=== PATIENT | female | born 1990 | race Caucasian/White ===

== ENCOUNTER 2017-07-26 02:10 | Inpatient (IN) | payer MEDICAID, SELFPAY ==
[2017-07-28 19:31] VITALS: BP 168/103; PULSE 85; RESP 18; TEMP 36.5; O2SAT 99; BMI 43.9
--- NOTE | 2017-07-29 10:37 | HMH.DCSUM ---
General - General Admission date: 07/26/17 Discharge date: 07/29/17 HPI HPI: She is a 26-year-old 3 para 3 who was 39 weeks gestational age. She has had a previous section as a result that was offered repeat lower segment transverse section at term. Objective Vital signs: Temp Pulse Resp BP Pulse Ox 97.7 F 85 18 168/103 99 07/28/17 19:31 07/28/17 19:31 07/28/17 19:31 07/28/17 19:31 07/28/17 19:31 no acute distress Hospital Course Hospital Course: On July 26, 2017 she underwent a repeat lower segment transverse section. She is eating and drinking and ambulating. She has done well . She has remained afebrile throughout her hospitalization. She is breast-feeding. Results Labs on day of discharge: Labs from last 24 hours 07/27/17 07/26/17 07/26/17 05:55 08:00 07:48 WBC RBC Hgb 9.3 L Hct 29.5 L MCV RDW Plt Count MPV Gran % Gran # Lymphocytes % Monocytes % Eosinophils % Basophils % Lymphocytes # Monocytes # Eosinophils # Basophils # PUBS MCHC Cord Blood pH 7.35 Sodium Potassium Chloride Carbon Dioxide BUN Creatinine Estimated GFR (MDRD) Glucose Calcium Total Bilirubin AST ALT Alkaline Phosphatase Total Protein Albumin Globulin Albumin/Globulin Ratio Urine Color YELLOW Urine Appearance CLEAR Urine pH 7.5 Ur Specific [place] 1.015 Urine Protein NEGATIVE Urine Ketones NEGATIVE Urine Blood NEGATIVE Urine Nitrate NEGATIVE Urine Bilirubin NEGATIVE Urine Urobilinogen 0.2 Ur Leukocyte Esterase NEGATIVE Urine WBC OCC Ur Squamous Epith Cells OCC Urine Bacteria TRACE Urine Mucus Urine Glucose NEGATIVE Opiates Screen Urine Methadone Screen Barbiturates Phencyclidine Screen Amphetamines Screen Benzodiazepines Screen Cocaine Screen Marijuana (THC) Screen Antibody Screen MCH Miscellaneous Test Blood Type (Ref Lab) 07/26/17 07/26/17 07/26/17 05:50 05:50 05:50 WBC 8.6 RBC 4.13 L Hgb 10.2 L Hct 32.4 L MCV 78.5 L RDW 15.1 Plt Count 288 MPV 7.6 Gran % 62.9 Gran # 5.4 Lymphocytes % 29.8 Monocytes % 4.7 Eosinophils % 2.1 Basophils % 0.4 Lymphocytes # 2.6 Monocytes # 0.4 Eosinophils # 0.2 Basophils # 0.0 PUBS MCHC 31.6 L Cord Blood pH Sodium 138 Potassium 3.7 Chloride 105 Carbon Dioxide 24 BUN 8 Creatinine 0.7 Estimated GFR (MDRD) 103 Glucose 84 Calcium 8.4 L Total Bilirubin 0.3 AST 8 L ALT 6 L Alkaline Phosphatase 179 H Total Protein 6.9 Albumin 2.5 L Globulin 4.4 H Albumin/Globulin Ratio 0.6 L Urine Color Urine Appearance Urine pH Ur Specific [place] Urine Protein Urine Ketones Urine Blood Urine Nitrate Urine Bilirubin Urine Urobilinogen Ur Leukocyte Esterase Urine WBC Ur Squamous Epith Cells Urine Bacteria Urine Mucus Urine Glucose Opiates Screen Urine Methadone Screen Barbiturates Phencyclidine Screen Amphetamines Screen Benzodiazepines Screen Cocaine Screen Marijuana (THC) Screen Antibody Screen NEGATIVE MCH 24.8 L Miscellaneous Test POSITIVE Blood Type (Ref Lab) A 07/26/17 07/26/17 05:30 05:30 WBC RBC Hgb Hct MCV RDW Plt Count MPV Gran % Gran # Lymphocytes % Monocytes % Eosinophils % Basophils % Lymphocytes # Monocytes # Eosinophils # Basophils # PUBS MCHC Cord Blood pH Sodium Potassium Chloride Carbon Dioxide BUN Creatinine Estimated GFR (MDRD) Glucose Calcium Total Bilirubin AST ALT Alkaline Phosphatase Total Protein Albumin Globulin Albumin/Globulin Ratio Urine Color DK YELLOW U
--- NOTE | 2017-07-29 10:40 | P.DS_ITS ---
General - General Admission date: 07/26/17 Discharge date: 07/29/17 HPI HPI: She is a 26-year-old 3 para 3 who was 39 weeks gestational age. She has had a previous section as a result that was offered repeat lower segment transverse section at term. Objective Vital signs: Temp Pulse Resp BP Pulse Ox 97.7 F 85 18 168/103 99 07/28/17 19:31 07/28/17 19:31 07/28/17 19:31 07/28/17 19:31 07/28/17 19:31 no acute distress Hospital Course Hospital Course: On July 26, 2017 she underwent a repeat lower segment transverse section. She is eating and drinking and ambulating. She has done well . She has remained afebrile throughout her hospitalization. She is breast-feeding. Results Labs on day of discharge: Labs from last 24 hours 07/27/17 07/26/17 07/26/17 05:55 08:00 07:48 WBC RBC Hgb 9.3 L Hct 29.5 L MCV RDW Plt Count MPV Gran % Gran # Lymphocytes % Monocytes % Eosinophils % Basophils % Lymphocytes # Monocytes # Eosinophils # Basophils # PUBS MCHC Cord Blood pH 7.35 Sodium Potassium Chloride Carbon Dioxide BUN Creatinine Estimated GFR (MDRD) Glucose Calcium Total Bilirubin AST ALT Alkaline Phosphatase Total Protein Albumin Globulin Albumin/Globulin Ratio Urine Color YELLOW Urine Appearance CLEAR Urine pH 7.5 Ur Specific [place] 1.015 Urine Protein NEGATIVE Urine Ketones NEGATIVE Urine Blood NEGATIVE Urine Nitrate NEGATIVE Urine Bilirubin NEGATIVE Urine Urobilinogen 0.2 Ur Leukocyte Esterase NEGATIVE Urine WBC OCC Ur Squamous Epith Cells OCC Urine Bacteria TRACE Urine Mucus Urine Glucose NEGATIVE Opiates Screen Urine Methadone Screen Barbiturates Phencyclidine Screen Amphetamines Screen Benzodiazepines Screen Cocaine Screen Marijuana (THC) Screen Antibody Screen MCH Miscellaneous Test Blood Type (Ref Lab) 07/26/17 07/26/17 07/26/17 05:50 05:50 05:50 WBC 8.6 RBC 4.13 L Hgb 10.2 L Hct 32.4 L MCV 78.5 L RDW 15.1 Plt Count 288 MPV 7.6 Gran % 62.9 Gran # 5.4 Lymphocytes % 29.8 Monocytes % 4.7 Eosinophils % 2.1 Basophils % 0.4 Lymphocytes # 2.6 Monocytes # 0.4 Eosinophils # 0.2 Basophils # 0.0 PUBS MCHC 31.6 L Cord Blood pH Sodium 138 Potassium 3.7 Chloride 105 Carbon Dioxide 24 BUN 8 Creatinine 0.7 Estimated GFR (MDRD) 103 Glucose 84 Calcium 8.4 L Total Bilirubin 0
== END 2017-07-29 13:30 | disposition home or self-care (01) | DRG 766 ==
PROVIDERS: Admitting Provider Nurse Practitioner Obstetrics & Gynecology; Visit Provider Nurse Practitioner Obstetrics & Gynecology
DX: O34.211 Maternal care for low transverse scar from previous cesarean delivery (principal); N85.8 Other specified noninflammatory disorders of uterus; Z3A.39 39 weeks gestation of pregnancy; Z37.0 Single live birth
CPT/HCPCS: 59514; 36415; 59025; 80053; 80305; 81001; 82800; 85014; 85018; 85025; 86850; 86900; 86901; 87086; 90686; 90732

== ENCOUNTER 2017-08-01 13:19 | Emergency (ER) | payer MEDICAID, SELFPAY ==
[2017-08-01 13:42] VITALS: BP 140/95; PULSE 82; RESP 18; TEMP 36.7; O2SAT 97; BMI 44.6
--- NOTE | 2017-08-01 14:12 | XR_ITS ---
XR chest 2V HISTORY: ITS.REASON: HEADACHE, POST- ORDERING PHYSICIAN: Jaylin Dexter MD PATIENT AGE: 26 years COMPARISON: None available FINDINGS: The cardiomediastinal silhouette and pulmonary vascularity are within normal limits. The lungs are clear without infiltrates, suspicious nodules, or pleural effusions. No acute bony abnormalities. IMPRESSION: Negative chest, no acute finding
[2017-08-01 14:41] LABS: Basophils % 0.4 % (0.1-2.0); Eosinophils # 0.4 K/mm3 (0.0-0.4); Eosinophils % 5.9 % (0.1-12.0); Hematocrit 32.7 % (37.0-47.0); Hemoglobin 10.2 g/dL (12.2-16.2); Lymphocytes # 1.9 K/mm3 (0.7-4.5); Lymphocytes % 27.5 K/mm3 (10-50); Mean Corpuscular HGB Conc 31.2 g/dL (31.8-35.4); Mean Corpuscular Hemoglobin 24.8 pg (27.0-31.2); Mean Corpuscular Volume 79.4 fl (81-99); Mean Platelet Volume 7.4 fl (7.4-10.4); Monocytes # 0.3 K/mm3 (0.1-1.0); Monocytes % 4.5 % (1.7-9.3); Neutrophils # 4.3 K/mm3 (1.8-7.8); Neutrophils % 61.7 % (37.0-80.0); Platelet Count 400 K/mm3 (142-424); Red Blood Count 4.12 M/mm3 (4.20-5.40); Red Cell Distribution Width 14.9 % (11.5-17.5)
[2017-08-01 14:55] LABS: Alanine Aminotransferase 18 U/L (12-78); Albumin Level 2.5 gm/dL (3.4-5.0); Albumin/Globulin Ratio 0.6 (1.1-1.8); Alkaline Phosphatase 119 U/L (46-116); Anion Gap 8.9 mEq/L (5-15); Aspartate Amino Transferase 15 U/L (15-37); Bilirubin,Total 0.3 mg/dL (0.2-1.0); Blood Urea Nitrogen 8 mg/dL (7-18); Calcium 8.7 mg/dL (8.5-10.1); Carbon Dioxide 30 mmol/L (21.0-32.0); Chloride 104 mmol/L (98-107); Creatinine Clearance Estimated 95 mg/ml (0-300); Creatinine,Serum 0.79 mg/dL (0.55-1.02); Estimated Glomerular Filt Rate > 60 ml/min (>60); GFR (African American) > 60 ML/MIN (>60); Globulin 4.5 gm/dl (1.3-3.2); Glucose 104 mg/dL (74-106); Potassium 3.9 mmoL/L (3.5-5.1); Sodium 139 mmol/L (136-145); Troponin I < 0.02 ng/ml (0.00-0.06)
--- NOTE | 2017-08-01 15:59 | PC.NURSE ---
CALL PLACED TO MECCA BOLAND CRNA.
--- NOTE | 2017-08-01 16:02 | HMH.EDGENADL ---
ED Disposition Clinical Impression: Cephalgia Disposition: Home, Self-Care Condition on Discharge: Good Instructions: Migraine Headaches (Alternative Therapy) Referrals: Karley Pugh [Primary Care Provider] - Time of Disposition: 18:04 - Critical Care Critical Care Time: No Attestation: On 08/01/17, the high probability of a clinically significant, sudden or life threatening deterioration of the following system(s) required my full and direct attention, intervention and personal management. The time I documented below is in addition to time spent performing reported procedures but includes the following listed in this critical care notation. Medical Decision Making Vital Signs: 08/01/17 13:42 Temperature 98.1 F Temperature Source Oral Pulse Rate [Right Brachial] 82 Respiratory Rate 18 Blood Pressure [Right Arm] 140/95 Blood Pressure Mean [Right Arm] 110 Blood Pressure Source [Right Arm] Automatic Cuff Blood Pressure Position [Right Arm] Supine 02 Sat by Pulse Oximetry 97 Oxygen Delivery Method Room Air - Lab Data Lab Results 08/01/17 14:30: WBC 7.0, RBC 4.12 L, Hgb 10.2 L, Hct 32.7 L, MCV 79.4 L, MCH 24.8 L, MCHC 31.2 L, RDW 14.9, Plt Count 400, MPV 7.4, Neut % (Auto) 61.7, Lymph % (Auto) 27.5, [place] % (Auto) 4.5, Eos % (Auto) 5.9, Baso % (Auto) 0.4, Neut # (Auto) 4.3, Lymph # (Auto) 1.9, [place] # (Auto) 0.3, Eos # (Auto) 0.4, Baso # (Auto) 0.0 08/01/17 14:30: Sodium 139, Potassium 3.9, Chloride 104, Carbon Dioxide 30, Anion Gap 8.9, BUN 8, Creatinine 0.79, Estimated Creat Clear 95, Estimated GFR > 60, Est GFR ( Amer) > 60, Glucose 104, Calcium 8.7, Total Bilirubin 0.3, AST 15, ALT 18, Alkaline Phosphatase 119 H, Troponin I < 0.02, Total Protein 7.0, Albumin 2.5 L, Globulin 4.5 H, Albumin/Globulin Ratio 0.6 L Result diagrams: 08/01/17 14:30 08/01/17 14:30 Orders (Tests/Meds): ED MEDICATIONS Generic Name Dose Route Start Last Admin Trade Name Freq PRN Reason Stop Dose Admin Sodium Chloride 10 ml 08/01/17 14:35 Saline Flush 10ml Syringe IV 08/31/17 14:34 NEEDED PRN Maintain IV Site Discontinued Medications Generic Name Dose Route Start Last Admin Trade Name Freq PRN Reason Stop Dose Admin Methylprednisolone Sodium Succinate 125 mg 08/01/17 16:26 Solu-Medrol 125mg/2ml Vial IV 08/01/17 16:27 ONCE ONE - Physician Consults Physician Consulted: Donny Benjamin anesthesia [facility] ascp consultant Time: 16:02 (states cephalgia not related to epidural placement;patch not indicated) Comment/Response: on his way in to assess pt; consideration for possible blood patch Time: 17:22 Reason -: Pt condition, Other (BP 142/96 although headache gone; will obtain OB consult) Time: 18:01 Reason -: Obstetrical Eval/Care Comment/Response: Dr. Child states to d/c with call by patient to Dr. Serrano tomorrow morning to recheck BP and reevaluate; pt stable at d/c no headache now - Akbar Inquiry Pt receiving controlled substance: No Medical Decision Making Narrative: Pt w/ hx of hormonally mediated migraines; pain relieved with Solumedrol IV; no meningismus; ready for d/c General Adult HPI - General Chief complaint: PAIN Stated complaint: head ache x3 days Time Seen by Provider: 08/01/17 16:00 Mode of Arrival: Ambulatory Limitations: No Limitations Description of Symptoms (Recalled from ER Triage Doc. by RN): HAS HAD A MIGRAINE VARYING IN INTENSITY FOR 3 DAYS: RECENTLY HAD C/S. ON SATURDAY - History of Present Illness HPI narrative: Pain diffusely, hx migraines; hx epidural six days ago with nl CS; had preeclampsia with prior and not with this one Severity: mild - Related Data Home Medications Medication Instructions Recorded Confirmed No Known Home Medications [No 07/28/17 08/01/17 Known Home Medications] Allergies Allergy/AdvReac Type Severity Reaction Status Date / Time No Known Allergies Allergy Verified 07/28/17 19:09 [facility]
[2017-08-01 18:31] VITALS: BP 142/85; PULSE 65; RESP 18
== END 2017-08-01 18:30 | disposition home or self-care (01) ==
PROVIDERS: Emergency Provider Emergency Medicine; PCP Family Medicine
DX: R51 Headache (principal); F17.210 Nicotine dependence, cigarettes, uncomplicated
CPT/HCPCS: 71046; 80053; 84484; 85025; 99282; 99283

== ENCOUNTER 2021-06-12 09:09 | Emergency (ER) | payer MEDICAID, SELFPAY ==
[2021-06-12 09:48] VITALS: BP 156/81; PULSE 76; RESP 16; TEMP 36.6; O2SAT 100; BMI 48.3
[2021-06-12 09:53] LABS: UTC Strep Screen (Rapid) Positive (Negative)
--- NOTE | 2021-06-12 10:28 | HMH.EDUTC ---
[facility] [place] Disposition Clinical Impression: Strep throat Disposition: Home, Self-Care Condition on Discharge: Good Instructions: DI for Strep Throat, Strep Throat Additional Instructions: *Monitor Temp, Over the counter Motrin or Tylenol as directed/as needed Tylenol every 4 hours and Motrin every 6 hours (as long as your family doctor has told you that you can take it) for fever or pain. and straight to ER if unable to lower temp less than 101.0 after medication given *Warm salt water gargles may help to soothe the throat *Throat Lozenges *Warm fluids like tea with honey may help to soothe the throat *Sleep elevated *Humidifier/Vaporizer *If you did not take Penicillin shot or was unable to, start taking antibiotic immediately and make sure that you take it for the FULL length of time although you should start to feel better in 24-48 hours *change toothbrush and toothpaste 24-48 hours after starting to take antibiotics so you do not reinfect yourself Monitor Temp. Tylenol and/or Ibuprofen as needed. ER if fever is no less than 101 despite alternating Tylenol and Ibuprofen * Encourage fluids, water, Gatorade, powerade, pedialyte if infant/toddler/or child *Cold fluids, popsicles and ice cream may feel good on his throat Follow up IMMEDIATELY for new or worsening symptoms or no Noticeable improvement over the next 48-72 hours. 911 for difficulty breathing or swallowing Prescriptions: Brompheniramine/Pseudoephed/Dm [Bromfed Dm Cough Syrup] 5 - 10 ml PO Q46H PRN #200 ml PRN Reason: Cough Transmission Status: Pending to [id number] Cefdinir [Omnicef 300mg Capsule] 300 mg PO BID #20 cap Transmission Status: Pending to [id number] Referrals: Karley Pugh [Primary Care Provider] - As needed Forms: Work/School Release Time of Disposition: 10:32 Medical Decision Making - Akbar Inquiry Pt receiving controlled substance: No Akbar was queried for this patient: No Vital Signs: 06/12/21 09:48 Temperature 97.8 F Temperature Source Oral Pulse Rate [Left] 76 Respiratory Rate 16 Blood Pressure [Right Arm] 156/81 H Blood Pressure Mean [Right Arm] 106 02 Sat by Pulse Oximetry 100 - Lab Data Lab results reviewed: Yes: I reviewed the patient's lab results. Lab Results 06/12/21 09:42: Strep Scn Rapid Clinic Positive A [facility] [place] HPI - General Stated complaint: cough, runny nose, congestion Time Seen by Provider: 06/12/21 10:28 Mode of Arrival: Ambulatory Source of Information: Patient Limitations: No Limitations Description of Symptoms (Recalled from Triage Doc. by RN): pt c/o cough, congestion, nasal drainage and ear aches x1 day. HEENT Symptoms (Recalled from RN notes): Yes (congestion, nasal drainage and ears ache) Resp Symptoms (Recalled from RN notes): Yes (cough) Skin Symptoms (Recalled from RN notes): No MS Symptoms (Recalled from RN notes): No Functional Status (Recalled from RN notes): na - History of Present Illness Provider Complaint: Patient states that she has been having sore throat, cough, and pain in both ears on and off States that her children have been feeling ill also so she came in to get checked - Related Data Previous Rx's Medication Instructions Recorded Azithromycin [Zithromax 500mg Tab 500 mg PO DAILY #3 tab 05/24/18 [facility]] Cefdinir [Omnicef 300mg Capsule] 300 mg PO BID #20 cap 08/31/18 Promethazine/Dextromethorphan 5 ml PO Q6HP PRN #240 syrup 08/31/18 [Promethazine-Dm Syrup] Oseltamivir Phosphate [Tamiflu 75 mg PO BID #10 capsule 10/19/18 75mg Capsule] Azithromycin [Zithromax 250mg 250 mg PO DIRECTED #6 tab 10/28/18 tab] Brompheniramine/Pseudoephed/Dm 5 - 10 ml PO Q46H PRN #200 ml 06/12/21 [Bromfed Dm Cough Syrup] Cefdinir [Omnicef 300mg Capsule] 300 mg PO BID #20 cap 06/12/21 Allergies Allergy/AdvReac Type Severity Reaction Status Date / Time No Known Allergies Allergy Verified 10/28/18 19:20 - Worker's Comp
[2021-06-12 10:54] VITALS: BP 156/81; PULSE 76; RESP 16; TEMP 36.6
== END 2021-06-12 11:00 | disposition home or self-care (01) ==
PROVIDERS: Emergency Provider Nurse Practitioner; PCP Family Medicine
DX: J02.0 Streptococcal pharyngitis (principal); F17.210 Nicotine dependence, cigarettes, uncomplicated
CPT/HCPCS: 87880; 99202; G0463

== ENCOUNTER 2023-08-11 10:51 | Emergency (ER) | payer MEDICAID, SELFPAY ==
[2023-08-11 11:15] VITALS: BP 140/83; PULSE 86; RESP 18; TEMP 36.7; O2SAT 100; BMI 45.1
--- NOTE | 2023-08-11 11:43 | EXP.UTC ---
Discharge Plan Disposition Patient Disposition: Home, Self-Care Condition: Good Prescriptions Prescriptions: New oseltamivir [Tamiflu] 75 mg capsule 75 mg PO BID Qty: 10 0RF [id number]-[id number] [Bromfed DM] 2-30-10 mg/5 mL Syrup 5 ml PO Q6H PRN (Reason: Cough) Qty: 240 0RF ondansetron 4 mg Tablet,Disintegrating 4 mg PO Q8H PRN (Reason: Nausea) Qty: 12 0RF Referrals Follow up/Referrals: Donavon Hayes APRN [Primary Care Provider] - See instructions Activity Restrictions/Add. Instructions Additional Instructions/Restrictions: Drink plenty of fluids. Take tylenol or ibuprofen for pain or fever. Take the medications as directed. Follow up with your regular doctor. GO TO THE ER FOR ANY WORSENING SYMPTOMS Clinical Impressions Clinical Impression: Influenza B Stand Alone Forms Stand Alone Forms: Work/School Release Instructions Patient Instructions: DI for Influenza -- Adult, Oseltamivir Discharge ED Provider: Heath Andrews [facility] General Stated complaint: Fever 102, cough, vomiting, congestion Mode of Arrival: Ambulatory Source of Information: Patient Limitations: No Limitations Time Seen by Provider: 08/11/23 11:42 Description of Symptoms (Recalled from Triage Doc. by RN): Pt's symptoms are fever, and cough. Was exposed to FLU. HEENT Symptoms (Recalled from RN notes): Yes Resp Symptoms (Recalled from RN notes): No Skin Symptoms (Recalled from RN notes): No MS Symptoms (Recalled from RN notes): No Functional Status (Recalled from RN notes): n/a History of Present Illness Provider Complaint: She states that for the past 2 days she has had fever, chills, cough and malaise. She has been exposed to influenza B. Related Data Previous Rx's Medication Instructions Recorded dxequcjlgfergee-fynnxromgkcnsag-HO 5 ml PO Q6H PRN Cough #240 mL 08/11/23 2 mg-30 mg-10 mg/5 mL oral syrup (Bromfed DM) ondansetron 4 mg disintegrating 4 mg PO Q8H PRN Nausea #12 tabs 08/11/23 tablet oseltamivir 75 mg capsule (Tamiflu) 75 mg PO BID #10 caps 08/11/23 Allergies Allergy/AdvReac Type Severity Reaction Status Date / Time No Known Allergies Allergy Verified 08/11/23 11:35 Worker's Comp Is this a Worker's Comp case?: No [facility] Disclaimer: The information contained in this section may have been updated after the patient was seen, as this information can be updated by other users. Social History Smoking Status: Current every day smoker tobacco type: cigarettes packs per day: 1 alcohol intake: never substance use type: denies use current occupational status: student Travel in the last 8 weeks: None household members: spouse and children current occupational exposures/hazards: No ROS Obtained: Yes All systems reviewed & no additional complaints except as documented Constitutional Constitutional: Reports chills and Reports fever(s) Eyes Eyes: Denies eye discharge ENT Ears, Nose, Mouth, and Throat: Reports as per HPI Cardiovascular Cardiovascular: Denies chest pain Respiratory Respiratory: Denies chest congestion and Reports cough Gastrointestinal Gastrointestingal: Reports nausea; Denies abdominal pain, constipation, cramping, diarrhea or vomiting Musculoskeletal Musculoskeletal: Denies arthralgias Integumentary/Breasts Skin/Breast: Denies rash Neurologic Neurologic: Denies paresthesias Physical Exam General General appearance: alert and in no apparent distress Head Head exam: atraumatic, normocephalic and normal inspection Eye Eye exam: Present normal appearance, PERRL and EOMI ENT ENT exam: Present normal exam, normal oropharynx, mucous membranes moist, TM's normal bilaterally and normal external ear exam Neck Neck exam: Present normal inspection, full ROM and trachea midline; Absent meningismus or lymphadenopathy Chest Chest inspection: Present normal inspection and symmetric chest wall rise; Absent tenderness Respiratory Respiratory exam: Present normal lung sounds bilaterally; Absent respiratory distress Cardiovascular Cardiovascular exam: Present regular rate and normal rhythm; Absent JVD Abdominal Exam Abdominal exam: Present soft and normal bowel sounds; Absent distention, tenderness or guarding Extremities Exam Extremities exam: Present normal inspection, full ROM and normal capillary refill; Absent calf tenderness Back Exam Back exam: Present normal inspection; Absent tenderness Neurological Exam Neurological exam: Present alert and oriented X3 Psychiatric Psychiatric exam: Present normal affect and normal mood Skin Skin exam: Present warm, dry, intact and normal color Lymphatic Lymphatic Findings: no adenopathy Medical Decision Making Medical Records Medical records reviewed: No I reviewed the patient's medical records. Abkar Inquiry Pt receiving controlled substance: No Vital Signs: 08/11/23 11:15 Temperature 98.1 F Temperature Source Oral Pulse Rate [Right Radial] 86 Respiratory Rate 18 Blood Pressure [Right Arm] 140/83 Blood Pressure Mean [Right Arm] 102 Blood Pressure Source [Right Arm] Automatic Cuff Blood Pressure Position [Right Arm] Sitting 02 Sat by Pulse Oximetry 100 Oxygen Delivery Method Room Air Lab Data Lab results reviewed: Yes I reviewed the patient's lab results.
[2023-08-11 12:22] VITALS: BP 140/83; PULSE 86; RESP 18; TEMP 36.7; O2SAT 100
== END 2023-08-11 12:22 | disposition home or self-care (01) ==
PROVIDERS: Emergency Provider Nurse Practitioner Family; PCP Nurse Practitioner
DX: J10.1 Influenza due to other identified influenza virus with other respiratory manifestations (principal); R50.9 Fever, unspecified; R05.9 Cough, unspecified; R11.0 Nausea; R09.81 Nasal congestion; R53.81 Other malaise; F17.210 Nicotine dependence, cigarettes, uncomplicated
CPT/HCPCS: 99212; 99214; G0463

== ENCOUNTER 2023-08-15 08:24 | Emergency (ER) | payer MEDICAID, SELFPAY ==
[2023-08-15 08:30] VITALS: PULSE 85; RESP 18; TEMP 36.7; O2SAT 100; BMI 44.8
--- NOTE | 2023-08-15 09:18 | ED_ITS ---
Discharge Plan Disposition Patient Disposition: Home, Self-Care Condition: Good Prescriptions Prescriptions: New zxriilzyypctsyz-jtzquooqj-QU [Bromfed DM] 2-30-10 mg/5 mL Syrup 5 ml PO Q6H PRN (Reason: Cough) Qty: 240 0RF amoxicillin [amoxicillin] 875 mg tablet 875 mg PO Q12H Qty: 20 0RF methylprednisolone 4 mg Tablets,Dose Pack 4 mg PO DIRECTED 6 Days Qty: 21 0RF Rx Instructions: Take 1 pack as directed for 6 days Referrals Follow up/Referrals: Donavon Hayes APRN [Primary Care Provider] - See instructions Activity Restrictions/Add. Instructions Additional Instructions/Restrictions: Drink plenty of fluids. Take tylenol or ibuprofen for pain or fever. Take the medications as directed. Follow up with your regular doctor. GO TO THE ER FOR ANY WORSENING SYMPTOMS Clinical Impressions Clinical Impression: Otitis media Instructions Patient Instructions: Middle Ear Infection Discharge ED Provider: Heath Andrews [facility] General Stated complaint: RIGHT EAR ACHE Mode of Arrival: Ambulatory Source of Information: Patient Limitations: No Limitations Time Seen by Provider: 08/15/23 09:18 Description of Symptoms (Recalled from Triage Doc. by RN): Pt has bilateral ear pain. HEENT Symptoms (Recalled from RN notes): Yes Resp Symptoms (Recalled from RN notes): No Skin Symptoms (Recalled from RN notes): No MS Symptoms (Recalled from RN notes): No Functional Status (Recalled from RN notes): n/a History of Present Illness Provider Complaint: She states that for the past 3 days she has had bilateral ear pain and sinus congestion. Related Data Previous Rx's Medication Instructions Recorded amoxicillin 875 mg tablet 875 mg PO Q12H #20 tabs 08/15/23 ftfuqeaoyistiae-alfsnardcfhrhpp-EW 5 ml PO Q6H PRN Cough #240 mL 08/15/23 2 mg-30 mg-10 mg/5 mL oral syrup (Bromfed DM) methylprednisolone 4 mg tablets in 4 mg PO DIRECTED 6 days #21 tabs 08/15/23 a dose pack Allergies Allergy/AdvReac Type Severity Reaction Status Date / Time No Known Allergies Allergy Verified 08/15/23 08:43 Worker's Comp Is this a Worker's Comp case?: No [facility] Disclaimer: The information contained in this section may have been updated after the patient was seen, as this information can be updated by other users. Social History Smoking Status: Current every day smoker tobacco type: cigarettes packs per day: 1 alcohol intake: never substance use type: denies use current occupational status: student Travel in the last 8 weeks: None household members: spouse and children current occupational exposures/hazards: No ROS Obtained: Yes All systems reviewed & no additional complaints except as documented Constitutional Constitutional: Denies chills, Reports fever(s) and Reports poor appetite Eyes Eyes: Denies eye discharge ENT Ears, Nose, Mouth, and Throat: Denies ear discharge, Reports otalgia, Denies hearing loss, Denies sinus pain and Reports sore throat Cardiovascular Cardiovascular: Denies chest pain and Denies dyspnea Respiratory Respiratory: Denies chest congestion, Reports cough and Denies dyspnea Gastrointestinal Gastrointestingal: Denies abdominal pain, diarrhea, nausea or vomiting Musculoskeletal Musculoskeletal: Denies arthralgias Integumentary/Breasts Skin/Breast: Denies rash Physical Exam General General appearance: alert and in no apparent distress Head Head exam: atraumatic, normocephalic and normal inspection Eye Eye exam: Present normal appearance; Absent PERRL or EOMI ENT ENT exam: Present mucous membranes moist and normal external ear exam Expanded ENT Exam TM/Canal exam: Bilateral TM: erythema, bulging and effusion Nose exam: Absent sinus tenderness Nasal speculum exam: Bilateral: normal Mouth exam: Present normal external inspection and other; Absent drooling Teeth exam: Present normal inspection Throat exam: Present tonsillar erythema and tonsillomegaly Neck Neck exam: Present normal inspection, full ROM and trachea midline; Absent tenderness, meningismus or lymphadenopathy Chest Chest inspection: Present normal inspection and symmetric chest wall rise; Absent tenderness Respiratory Respiratory exam: Present normal lung sounds bilaterally; Absent respiratory distress, wheezes or stridor Cardiovascular Cardiovascular exam: Present regular rate, normal rhythm and normal heart sounds; Absent tachycardia or irregular rhythm Abdominal Exam Abdominal exam: Present soft and normal bowel sounds; Absent distention, tenderness, guarding, rebound or rigidity Extremities Exam Extremities exam: Present normal inspection and normal capillary refill; Absent tenderness, joint swelling or calf tenderness Back Exam Back exam: Present normal inspection and full ROM; Absent tenderness, CVA tenderness (R) or CVA tenderness (L) Neurological Exam Neurological exam: Present alert, oriented X3, CN II-XII intact, normal gait and reflexes normal; Absent motor sensory deficit Psychiatric Psychiatric exam: Present normal affect and normal mood Skin Skin exam: Present warm, dry, intact and normal color Lymphatic Lymphatic Findings: no adenopathy Medical Decision Making Medical Records Medical records reviewed: No I reviewed the patient's medical records. Akbar Inquiry Pt receiving controlled substance: No Vital Signs: 08/15/23 08:30 Temperature 98.0 F Temperature Source Oral Pulse Rate [Right Radial] 85 Respiratory Rate 18 02 Sat by Pulse Oximetry 100 Oxygen Delivery Method Room Air
[2023-08-15 09:38] VITALS: BP 0/0; PULSE 85; RESP 19; TEMP 36.9; O2SAT 100
== END 2023-08-15 09:38 | disposition home or self-care (01) ==
PROVIDERS: Emergency Provider Nurse Practitioner Family; PCP Nurse Practitioner
DX: H66.93 Otitis media, unspecified, bilateral (principal); R50.9 Fever, unspecified; R05.9 Cough, unspecified; R09.81 Nasal congestion; R07.0 Pain in throat; F17.210 Nicotine dependence, cigarettes, uncomplicated
CPT/HCPCS: 99212; 99214; G0463

== ENCOUNTER 2024-09-09 22:35 | Emergency (ER) | payer MEDICAID, SELFPAY ==
[2024-09-09 22:39] VITALS: BP 186/117; PULSE 72; RESP 18; TEMP 36.8; O2SAT 100; BMI 46.0
--- NOTE | 2024-09-09 22:58 | PC.NURSE ---
Rounding done. Patient resting.
[2024-09-09 23:18] VITALS: BP 138/84; PULSE 75; RESP 16; TEMP 36.8; O2SAT 99
[2024-09-09] MEDS: AMOXICILLIN/CLAVULANATE POTASSIUM 875/125MG TABLET 1 EACH PO (23:19)
--- NOTE | 2024-09-09 23:58 | ED_ITS ---
Discharge Plan Disposition Patient Disposition: Home, Self-Care Condition: Good Prescriptions Prescriptions: New amoxicillin-pot clavulanate 875-125 mg tablet 1 tab PO BID Qty: 20 0RF No Action muwrhpldktzcaxe-ugjxibfji-UR [Bromfed DM] 2-30-10 mg/5 mL Syrup 5 ml PO Q6H PRN (Reason: Cough) Qty: 240 0RF amoxicillin [amoxicillin] 875 mg tablet 875 mg PO Q12H Qty: 20 0RF methylprednisolone 4 mg Tablets,Dose Pack 4 mg PO DIRECTED 6 Days Qty: 21 0RF Rx Instructions: Take 1 pack as directed for 6 days Referrals Follow up/Referrals: Donavon Hayes APRN [Primary Care Provider] - See instructions Activity Restrictions/Add. Instructions Additional Instructions/Restrictions: You were evaluated in the ER and are appropriate for discharge at this time. Take Tylenol and ibuprofen if needed for pain, do not exceed the recommended dose on the bottle. Drink water and eat a small snack each time you take these medications to avoid side effects. Stop the amoxicillin you were taking. Take the prescribed Augmentin as directed, do not skip doses, do not stop taking it early. Use the provided dental balls if needed. Put it on for 1 hour, then remove for 1 hour. Do not sleep, eat, or drink with these in place. Follow-up with your dentist as scheduled tomorrow morning. Return to the ER with new, worsening, or otherwise concerning symptoms. Clinical Impressions Clinical Impression: Pain, dental, Dental caries, Gingivitis Print Language Print Language: Icelandic Discharge ED Provider: Victor Manuel Carrillo General Adult HPI General Chief complaint: Dental/Oral Stated complaint: dental pain Time Seen by Provider: 09/09/24 23:08 Mode of Arrival: Ambulatory Source of Information: Patient Limitations: No Limitations Description of Symptoms (Recalled from ER Triage Doc. by RN): Pt presents for evaluation of left sided dental pain, and is now starting to have swelling to her face. Has a dentist appointment for tomorrow. History of Present Illness HPI narrative: Otherwise healthy 33-year-old female presents to the ER with complaints of left upper dental pain. She states the pain started 1 day ago but tonight she started noticing slight swelling in her face so she came to the ER. She admits that she knew someone with leftover amoxicillin so she started taking that yesterday, she states she has taken 3 doses of amoxicillin 500 mg, most recently a dose this afternoon. She states she has a dentist appointment scheduled for tomorrow but the swelling had her concern for possible abscess. She has been taking ibuprofen for pain management which she states does mostly control the pain. She has no difficulty opening the mouth, swallowing, or breathing. She states she has a broken molar and cavities and does not recall the last time she saw dentist. No fevers or other associated symptoms. Related Data Previous Rx's ?Medication ?Instructions ?Recorded amoxicillin 875 mg tablet 875 mg PO Q12H #20 tabs 08/15/23 wbdtgqeysiktxop-lsavuyhimsujnws-ZH 5 ml PO Q6H PRN Cough #240 mL 08/15/23 2 mg-30 mg-10 mg/5 mL oral syrup (Bromfed DM) methylprednisolone 4 mg tablets in 4 mg PO DIRECTED 6 days #21 tabs 08/15/23 a dose pack amoxicillin 875 mg-potassium 1 tab PO BID #20 tabs 09/09/24 clavulanate 125 mg tablet Allergies Allergy/AdvReac Type Severity Reaction Status Date / Time No Known Allergies Allergy Verified 08/15/23 08:43 [facility] Disclaimer: The information contained in this section may have been updated after the patient was seen, as this information can be updated by other users. Social History Smoking Status: Never smoker alcohol intake: never substance use type: denies use current occupational status: student Travel in the last 8 weeks: None household members: spouse and children current occupational exposures/hazards: No Have you lived/traveled outside [place] in past 30 days?: No Contact w/someone who lives/traveled outside [place] past 30 days?: No Exposure to someone with infectious disease in past 14 days?: No Do you have a fever (greater than 100.4 F or 38 C)?: No Have you tested positive for COVID-19: No Exposed to someone with COVID-19 in past 14 days?: No Do you have a sore throat?: No Do you have a cough?: No Do you have any weakness?: No Do you have any diarrhea?: No Are you experiencing any unusual bleeding?: No Do you have any muscle aches/pain?: No Do you have any abdominal pain?: No Are you experiencing loss of taste or smell?: No Other Medical History Have you received the Flu Vaccine for this season: Yes Have you received the Pneumonia Vaccine: No ROS Obtained: Yes Systems reviewed as appropriate & no additional complaints except as documented Per HPI Physical Exam General General appearance: alert and in no apparent distress Head Head exam: atraumatic, normocephalic and other (No facial swelling appreciated) Eye Eye exam: Present PERRL and EOMI ENT ENT exam: Present mucous membranes moist Expanded ENT Exam Teeth exam: Present dental caries, fractured tooth # (16), dental tenderness # (Along the gingiva of tooth 15 and 16) and gingival swelling (At the base of tooth 15 and 16 without fluctuance, no abscess) Comment: No woodiness of the floor of the mouth, no sublingual or submandibular swelling, no lymphadenopathy, no trismus Neck Neck exam: Present normal inspection and full ROM Chest Chest inspection: Present symmetric chest wall rise Respiratory Respiratory exam: Present normal lung sounds bilaterally; Absent respiratory distress, wheezes or stridor Cardiovascular Cardiovascular exam: Present regular rate and normal rhythm Extremities Exam Extremities exam: Present full ROM Neurological Exam Neurological exam: Present alert and oriented X3; Absent motor sensory deficit Psychiatric Psychiatric exam: Present normal affect and normal mood Skin Skin exam: Present warm and dry Medical Decision Making Medical Records Screening: Per USPSTF and CDC recommendations, given the prevalence of disease in our region, it is our hospital?s policy to screen for HIV and viral Hepatitis for all patients aged 18 and over and those with ongoing risk factors. Akbar Inquiry Pt receiving controlled substance: No Vital Signs: 09/09/24 22:39 09/09/24 23:18 Temperature 98.3 F 98.3 F Temperature Source Oral Oral Pulse Rate 75 Pulse Rate [Right] 72 Respiratory Rate 18 16 Blood Pressure 138/84 Blood Pressure [Right Arm] 186/117 H Blood Pressure Mean [Right Arm] 140 Blood Pressure Source [Right Arm] Automatic Cuff Blood Pressure Position [Right Arm] Sitting 02 Sat by Pulse Oximetry 100 Oxygen Delivery Method Room Air Room Air Orders (Tests/Meds): ED MEDICATIONS Discontinued Medications Generic Name Dose Route Start Last Admin Trade Name Freq PRN Reason Stop Dose Admin Amoxicillin/Clavulanate Potassium 1 each 09/09/24 23:15 09/09/24 23:19 Amoxicillin/Clavulanate Potassium 875/125mg Tablet PO 09/09/24 23:16 1 each ONCE ONE Administration Medical Decision Narrative: In summary, this 33-year-old female otherwise healthy presents to the emergency department today with left upper dental pain. On initial evaluation patient is hemodynamically stable, afebrile, she has broken tooth and dental caries as well as evidence of gingivitis at the base of tooth 15 and 16 with associated tenderness but no abscess. Differential diagnosis includes but is not limited to gingivitis, abscess, I also considered dental fracture which is evident, and considered Lui's angina but there is no evidence of this on exam. I offered patient nerve block but she would prefer to manage topically with dental balls. I believe this is reasonable. I do not believe imaging or lab workup is necessary at this time, dental balls were provided to the patient. She also received a dose of Augmentin and I prescribed this since we are unsure how old the amoxicillin that she is currently taking is or how many doses she has available to her. She was instructed to take this medication as prescribed, follow-up with dentistry as scheduled tomorrow, and was also given instructions on continued symptomatic monitoring and management and return precautions for the ER. She indicated understanding to all instructions and the patient was discharged in stable condition Critical Care Critical Care Time Critical Care Time: No
== END 2024-09-09 23:20 | disposition home or self-care (01) ==
PROVIDERS: Emergency Provider Emergency Medicine; PCP Nurse Practitioner
DX: K08.89 Other specified disorders of teeth and supporting structures (principal); K05.10 Chronic gingivitis, plaque induced; K02.9 Dental caries, unspecified
CPT/HCPCS: 99283